=== PATIENT | male | born 1970 | race Caucasian/White ===

== ENCOUNTER 2018-11-25 00:17 | Emergency (ER) | payer SELFPAY ==
--- NOTE | 2018-11-25 00:35 | PDOC ---
History of Present Illness - General Stated Complaint: INTOX Time Seen by Provider: 11/25/18 00:27 - History of Present Illness Initial Comments: 11/25/18 00:29 The patient is a 48 year old male who denies any who presents for possible intoxication. Per EMS, the patient was found in the street and was given narcan and awoke. The patient is agitated in the ED and requesting to leave. He is oriented x3 and alert and ambulating steadily. The patient refuses to participate in history and refused to participate in ROS. Review of Systems - Review of Systems Able to Perform ROS?: No (Refused) *Physical Exam - Physical Exam Comments: 11/25/18 00:32 General Appearance: Nourished. No Apparent Distress HEENT: EOMI, NADER. No Pharyngeal Erythema, Tonsillar Exudate, Tonsillar Erythema Neck: No Cervical Lymphadenopathy Respiratory/Chest: Lungs Clear, Normal Breath Sounds. No Crackles, Rales, Rhonchi, Wheezing Cardiovascular: Regular Rhythm, Regular Rate. No Murmur, Gallops, Rubs Gastrointestinal/Abdominal: Normal Bowel Sounds, Soft. No Guarding, Rebound, Tenderness Musculoskeletal: No CVA Tenderness Extremity: Normal Capillary Refill Integumentary: Normal Color, Dry, Warm Neurologic: Fully Oriented, Alert, Normal Mood/Affect, Normal Response, Motor Strength 5/5. Medical Decision Making - Medical Decision Making 11/25/18 00:33 The patient is a 48 year old male who denies any who presents for possible intoxication. Patient advised to stay for further work up and evaluation. The patient eloped from the ED prior to further eval and work up. Patient was oriented x3 and knew his address. Patient's iv was removed prior to his elopement. *DC/Admit/Observation/Transfer Diagnosis at time of Disposition: Intoxication - Discharge Dispostion Disposition: ELOPED Condition at time of disposition: Stable - Referrals - Patient Instructions - Post Discharge Activity
--- NOTE | 2018-11-25 02:10 | PDOC ---
Documentation entered by Maureen Lentz SCRIBE, acting as scribe for Natty Toribio MD. Natty Toribio MD: This documentation has been prepared by the Mary Carmen iqbal Nirvannie, SCRIBE, under my direction and personally reviewed by me in its entirety. I confirm that the documentation accurately reflects all work, treatment, procedures, and medical decision making performed by me. Attending Attestation - Resident Resident Name: Jarod Alexander - ED Attending Attestation I have performed the following: I have examined & evaluated the patient, The case was reviewed & discussed with the resident, I agree w/resident's findings & plan - HPI HPI: 11/25/18 00:34 [id number] with unknown PMH, who presents to the ED via EMS for possible heroin intox. As per EMS, patient was given Narcan in the field. While in the ER, patient is alert and orientated to person, place, time, and can write down his address. Pt notes he would like to go home secondary to an important meeting in the morning. - Physicial Exam PE: 11/25/18 00:36 GENERAL: +Agitated. Well-appearing, well-nourished. No apparent distress. HEENT: Normocephalic, atraumatic. PERRL, EOM intact. CARDIOVASCULAR: Normal S1, S2. Regular rate and rhythm. PULMONARY: Clear to auscultation bilaterally. ABDOMEN: Soft, non-distended, non-tender. EXTREMITIES: Normal ROM in all four extremities. No gross deformities. SKIN: Warm, dry. No rash NEUROLOGICAL: No focal neurological deficits. - Medical Decision Making 11/25/18 00:59 pt requested a cab ,gave us his address to call a taxi and eloped
== END 2018-11-25 01:34 | disposition left against medical advice (07) ==
LOC: JER 00:17
DX: F10.120 Alcohol abuse with intoxication, uncomplicated (principal)
CPT/HCPCS: 99281-25